=== PATIENT | male | born 1990 | race Hispanic/Latino ===

== ENCOUNTER 2016-07-03 13:23 | Emergency (ER) | payer OTHER ==
[~2016-07-03] VITALS: Ht 172.7 cm; Wt 64.4 kg
[2016-07-03] MEDS ORDERED: MULTI-DAY VITA1 EACH PO (16:32)
[2016-07-03] MEDS ORDERED: DIVALPROEX SOD250 M3 PO (16:32)
[2016-07-03] MEDS ORDERED: CLONIDINE HCL0.1 MG PO (16:32)
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
[2016-07-03 17:31] LABS: ABSOLUTE BASOPHIL COUNT 0 /CUMM (0.0-0.2); ABSOLUTE EOSINOPHIL COUNT 0.1 /CUMM (0.0-0.7); ABSOLUTE GRANULOCYTE CT 3.6 /CUMM (1.4-6.5); ABSOLUTE LYMPH COUNT 2.2 /CUMM (1.2-3.4); ABSOLUTE MONOCYTE COUNT 0.5 /CUMM (0.10-0.60); BASOPHIL % 0.2 % (0.0-2.0); EOSINOPHIL % 1.6 % (0-5); GRANULOCYTE % 55.5 % (42.2-75.2); HEMATOCRIT 44.1 % (42-52); MEAN CORPUSCULAR HGB 32.2 PG (27.0-31.0); MEAN CORPUSCULAR HGB CONC 34.4 G/DL (33.0-37.0); MEAN CORPUSCULAR VOLUME 93.7 FL (80.0-94.0); MEAN PLATELET VOLUME 7.8 FL (7.4-10.4); PLATELET COUNT 266 /CUMM (130-400); RBC DISTRIBUTION WIDTH 12.9 % (11.5-14.5); RED BLOOD CELL CT 4.71 /CUMM (4.70-6.10); WHITE BLOOD CELL COUNT 6.5 /CUMM (4.8-10.8)
[2016-07-03] MEDS ORDERED: ZOFRAN ODT4 M1 SL (18:12)
[2016-07-03] MEDS ORDERED: CHLORDIAZEPOXID25 M3 PO ×3 (18:12→18:20)
[2016-07-03 20:49] VITALS: BP 122/70
== END 2016-07-03 20:49 ==
LOC: ERH 13:23
PROVIDERS: Physician Assistant Medical
DX: S39.012A Strain of muscle, fascia and tendon of lower back, initial encounter (principal); F10.10 Alcohol abuse, uncomplicated; V49.40XA Driver injured in collision with unspecified motor vehicles in traffic accident, initial encounter; Y92.410 Unspecified street and highway as the place of occurrence of the external cause
CPT/HCPCS: 80307; G0480